=== PATIENT | male | born 1960 | race Caucasian/White ===

== ENCOUNTER 2017-05-25 05:49 | Observation (INO) | payer BC ==
[2017-05-25] MEDS ORDERED: PROPOFOL 20 ML (06:22)
[2017-05-25] MEDS ORDERED: ROCURONIUM 50 MG INJ ×2 (06:22→07:00)
[2017-05-25] MEDS ORDERED: NEOSTIGMINE 3 MG/3 ML SYRINGE (06:22)
[2017-05-25] MEDS ORDERED: MIDAZOLAM 1 MG/ML 2 ML INJ (06:22)
[2017-05-25] MEDS ORDERED: GLYCOPYRROLATE 0.4 MG INJ (06:22)
[2017-05-25] MEDS ORDERED: LIDOCAINE 2% (SDV) 5 ML INJ (06:22)
[2017-05-25] MEDS ORDERED: FENTAnyl 50 MCG/ML VIAL ×2 (06:23→10:24)
[2017-05-25] MEDS ORDERED: ONDANSETRON 4 MG INJ ×2 (06:29→11:47)
[2017-05-25] MEDS ORDERED: DEXAMETHASONE 4 MG/ML 1 ML INJ (06:29)
[2017-05-25] MEDS ORDERED: MEPERIDINE 25 MG INJ IV (06:30)
[2017-05-25] MEDS ORDERED: EPHEDrine SULFATE 50 MG/5 ML SYG IV (06:30)
[2017-05-25] MEDS ORDERED: HYDROmorphONE (0.2 MG/ML) 10ML SYG IV ×4 (06:30→11:47)
[2017-05-25] MEDS ORDERED: DIPHENHYDRAMINE 50 MG INJ IV (06:30)
[2017-05-25] MEDS ORDERED: ONDANSETRON 4 MG INJ IV (06:30)
[2017-05-25] MEDS ORDERED: hydrALAzine 20 MG INJ IV (06:30)
[2017-05-25] MEDS ORDERED: FENTAnyl 50 MCG/ML VIAL IV ×2 (06:30)
[2017-05-25] MEDS ORDERED: OXYCODONE/ACETAMINOPHEN (5/325) TAB PO ×2 (06:30)
[2017-05-25] MEDS ORDERED: morphine (1 MG/ML) 10ML SYRINGE IV ×3 (06:30)
[2017-05-25] MEDS ORDERED: LABETALOL HCL 20MG INJ IV (06:30)
[2017-05-25] MEDS ORDERED: MIDAZOLAM 1 MG/ML 2 ML INJ IV (06:30)
[2017-05-25] MEDS ORDERED: ATROPINE 1 MG/10 ML SYRINGE IV (06:30)
[2017-05-25] MEDS ORDERED: SUCCINYLCHOLINE CHLORIDE 100 MG/5 ML SYG IV (07:00)
[2017-05-25] MEDS ORDERED: LABETALOL HCL 20MG INJ (08:25)
[2017-05-25] MEDS: GELATIN SIZE 100 SPONGE (09:02)
[2017-05-25] MEDS: BUPIVACAINE 0.25% (MPF) 30 ML INJ (09:02)
[2017-05-25] MEDS: THROMBIN 5000 UNIT VIAL (09:02)
[2017-05-25] MEDS: POLYMYXIN/BACITRACIN 1L IRRIG (09:03)
[2017-05-25] MEDS ORDERED: BETAMET NA PHOS/AC(6 MG/ML) 5ML INJ (10:47)
[2017-05-25] MEDS ORDERED: PROCHLORPERAZINE 10 MG TAB PO (11:30)
[2017-05-25] MEDS ORDERED: HYDROCODONE/APAP (5/325) TAB PO (11:30)
[2017-05-25] MEDS ORDERED: ACETAMINOPHEN 325 MG TAB PO (11:30)
[2017-05-25] MEDS ORDERED: NACL 0.9% 3 ML SYG IV (11:30)
[2017-05-25] MEDS: ONDANSETRON 4 MG INJ IV (11:55)
[2017-05-25] MEDS: HYDROCODONE/APAP (5/325) TAB PO (12:00)
== END 2017-05-25 13:40 | disposition home or self-care (01) ==
LOC: SDS 05:49 → REC 11:26
DX: M48.061 Spinal stenosis, lumbar region without neurogenic claudication (principal); M51.16 Intervertebral disc disorders with radiculopathy, lumbar region; I10 Essential (primary) hypertension
CPT/HCPCS: 63030; 72100; 88304; 97163; 99217